=== PATIENT | female | born 1970 | race Hispanic/Latino ===

== ENCOUNTER 2017-06-21 19:40 | Emergency (ER) | payer OTHER ==
[~2017-06-21] VITALS: Ht 154.9 cm; Wt 80.7 kg
[2017-06-21] MEDS ORDERED: KETOROLAC TROMETHAMINE 30 MG/ML VIAL IV STA (19:56)
[2017-06-21] MEDS ORDERED: ONDANSETRON HCL INJ 2 MG/ML VIAL IV STA (19:56)
== END 2017-06-21 20:58 | disposition home or self-care (01) ==
LOC: FSED 19:40
DX: N30.90 Cystitis, unspecified without hematuria (principal)
CPT/HCPCS: 74176; 80048; 85025; 96374; 96375; 99284; J1885; J2405